=== PATIENT | male | born 1980 | race Caucasian/White ===

== ENCOUNTER 2021-03-27 05:07 | Emergency (ER) | payer SELFPAY ==
[~2021-03-27] VITALS: Ht 167.6 cm; Wt 66.0 kg
[2021-03-27 05:09] VITALS: BP 130/80
[2021-03-27] MEDS ORDERED: PANTOPRAZOLE SODIUM 40 MG/VIAL IV STA (05:18)
[2021-03-27] MEDS ORDERED: SODIUM CHLORIDE 0.9% 1,000 ML IV ONE (05:30)
[2021-03-27] MEDS ORDERED: ONDANSETRON HCL 4MG/2ML INJ IV ONE (05:30)
[2021-03-27 05:44] LABS: HEMATOCRIT. 40.5 % (42.0-52.0); HEMOGLOBIN. 12.8 g/dL (14.0-18.0); LYMPHOCYTES % 15.1 % (20.0-50.0); MEAN CORPUSCULAR HEMOGLOBIN 25.7 pg (28.0-32.0); MEAN CORPUSCULAR VOLUME 81.7 fL (80.0-94.0); MEAN PLATELET VOLUME 8.3 fl (7.4-10.4); MONOCYTES % 6.8 % (2.0-8.0); NEUTROPHILS % 76.1 % (40.0-76.0); PLATELET 175 x1000/uL (130-400); RED BLOOD CELL COUNT 4.96 mill/uL (4.7-6.1)
[2021-03-27 05:47] LABS: CHLORIDE 106 mEq/L (98-107)
== END 2021-03-27 07:16 | disposition home or self-care (01) ==
LOC: ER 05:28
DX: S09.8XXA Other specified injuries of head, initial encounter (principal); S02.2XXA Fracture of nasal bones, initial encounter for closed fracture; F10.10 Alcohol abuse, uncomplicated; Y90.9 Presence of alcohol in blood, level not specified; R74.8 Abnormal levels of other serum enzymes; Y04.2XXA Assault by strike against or bumped into by another person, initial encounter; Y93.89 Activity, other specified; Y92.89 Other specified places as the place of occurrence of the external cause; R74.01 Elevation of levels of liver transaminase levels; D64.9 Anemia, unspecified; Z71.41 Alcohol abuse counseling and surveillance of alcoholic
CPT/HCPCS: 36415; 70486; 80053; 83690; 85025; 99284; J7030